=== PATIENT | male | born 1955 | race Caucasian/White ===

== ENCOUNTER → 2024-01-29 12:27 | Outpatient (REF) | payer OTHER, SELFPAY ==
[2024-01-29 14:37] LABS: % Basophils 0.6 % (0-2); % Eosinophils 4.1 % (0-6); % Immature Granulocytes 0.4 % (0-0.5); % Lymphocytes 26.5 % (20.5-51.1); % Monocytes 10.6 % (1.7-9.3); % Neutrophils 57.8 % (42.2-75.2); Absolute Basophils 0.1 10^3/uL (0-0.2); Absolute Eosinophils 0.3 10^3/uL (0-0.7); Absolute Lymphocytes 2.1 10^3/uL (1.2-3.4); Absolute Monocytes 0.8 10^3/uL (0.1-0.6); Absolute Neutrophils 4.5 10^3/uL (1.4-6.5); Hematocrit 42.5 % (39.0-52.0); Hemoglobin 14.2 g/dL (13.0-18.0); Mean Corp Hgb Conc. 33.4 g/dL (33.0-37.0); Mean Corpuscular Hgb 30.1 pg (27.0-31.0); Mean Platelet Volume 10.4 fL (7.4-10.4); Nucleated Red Blood Cells % 0 % (-); Platelet Count 231 10^3/uL (130-400); Red Blood Cell Count 4.72 10^6/uL (4.70-6.10); Red Cell Dist. Width 14.3 % (11.5-14.5); White Blood Cell Count 7.8 10^3/uL (4.8-10.8)
[2024-01-29 15:18] LABS: Blood Urea Nitrogen 58 mg/dl (9-20); Calcium 10.8 mg/dl (8.4-10.2); Carbon Dioxide 22 mmol/L (22-30); Chloride 109 mmol/L (98-107); Glucose 113 mg/dl (70-99); Potassium 4.5 mmol/L (3.5-5.1); Sodium 145 mmol/L (135-145); eGFR 33.66
== END ==
LOC: REG 12:27
PROVIDERS: ATTENDING PHYSICIAN Orthopaedic Surgery; FAMILY PHYSICIAN Family Medicine
DX: Z01.818 Encounter for other preprocedural examination (principal)
CPT/HCPCS: 36415; 80048; 85025; 93005

== ENCOUNTER → 2024-02-20 16:15 | Outpatient (REF) | payer OTHER, SELFPAY | LOC: CLAB 16:15 | PROVIDERS: ATTENDING PHYSICIAN Orthopaedic Surgery | DX: M13.849 Other specified arthritis, unspecified hand (principal) | CPT/HCPCS: 88305 ==

== ENCOUNTER 2025-01-12 09:04 | Inpatient (IN) | payer OTHER, SELFPAY ==
--- NOTE | 2024-12-08 11:31 | CM ---
CM reviewed medical records.
Demographics: Confirmed
Living situation: lives independently with
Support Person Post Operatively: , Roseline
History of
VN: yes, currently not on service
SNF: no
Outpatient; Simrant encouraged to make appointment for outpatient PT. Patient stated the facility is 'somewhere in [place]'
Has patient purchased required equipment: CM encouraged patient to review required DME list from [employer]
PCP: Active
Pharmacy: [facility]
Post Operative Discharge Plan: Discussed [facility], and plan to transition to outpatient PT.
[2024-12-22 11:34] LABS: Hematocrit 41.7 % (39.0-52.0); Hemoglobin 13.7 g/dL (13.0-18.0); Mean Corp Hgb Conc. 32.9 g/dL (33.0-37.0); Mean Corpuscular Volume 89.9 fL (80.0-94.0); Platelet Count 202 10^3/uL (130-400); Red Cell Dist. Width 14.8 % (11.5-14.5)
[2024-12-22 12:01] LABS: ALT (SGPT) 31 U/L (0-50); AST (SGOT) 24 U/L (17-59); Albumin 4.5 g/dl (3.5-5.0); Alkaline Phosphatase 63 U/L (38-126); Blood Urea Nitrogen 45 mg/dl (9-20); Calcium 10.7 mg/dl (8.4-10.2); Carbon Dioxide 23 mmol/L (22-30); Chloride 112 mmol/L (98-107); Glucose 110 mg/dl (70-99); Potassium 4.5 mmol/L (3.5-5.1); Sodium 144 mmol/L (135-145); Total Protein 7.7 g/dl (6.3-8.2); eGFR 40.24
[2024-12-22 12:08] LABS: Glycohemoglobin (HgbA1c) 6.0 % (4.0-5.6)
[2024-12-22 14:13] VITALS: BMI 35.5
--- NOTE | 2024-12-29 09:06 | VNURNOTE ---
Addendum entered by Lida Hinkle RN 12/30/24 09:43:
Spoke with patient.
Patient is scheduled for an elective R NUVIA on 01/12- he is a same day patient with Dr Nuñez. Spoke with patient prior to surgery. Introduced role of [facility] Liaison. Patient reports that he lives with his . No pets.
PCP is Dr Jimmy Hudson
Discussed [facility] joint protocol and post surgical plans.
Reviewed that he will have VN services initially and will then start outpatient PT.
Patient selects [facility] for his home care needs and will go to outpatient PT in [place]. Scheduled for 01/18 .
Patient is in agreement with plan and states that his will be home with him. Advised to bring RW with him day of surgery. Referral placed in [facility].
Plan: [facility] per [facility] joint protocol 01/12 then outpt PT on 01/18
Original Note:
Chart reviewed. Called pt to explain joint protocol same day program. No answer, left message. [facility] referral placed in [facility].
[2025-01-12] VITALS (21 sets, daily range): BP systolic 101–174; BP diastolic 69–108; PULSE 68–109; BMI 35.8
[2025-01-12] MEDS: CELEBREX 200 MG PO (06:22)
[2025-01-12] MEDS: TYLENOL 650 MG PO ×4 (06:22→20:11)
--- NOTE | 2025-01-12 07:44 | W.DS.TRANS ---
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
-
Discharge Instructions:
Discharge Diagnosis/Procedures R NUVIA Dr Nuñez
Diet Diabetic, Carb Controlled
Activity With Walker
Driving Restrictions No driving
Bathing Restrictions OK to Shower
Other Services PT
Instructions:
Stand-Alone Forms: SDS Total Hip and Knee D/C
Changes to Home Medications: Yes
Discharge Medications:
DC Medications w/original date entered in [employer]
Tremadone 1 dose PO BID 12/21/24
Held on 01/12/25. Instructions: Resume on 01/20/25.
atenolol 50 mg-chlorthalidone 25 mg tablet 1 tab PO DAILY 12/21/24
febuxostat 40 mg tablet 40 mg PO DAILY 12/21/24
melatonin 1 mg chewable tablet 2 mg PO HS PRN insomnia 12/21/24
omega 1-ndk-uwa-fish oil 1,000 mg (120 mg-180 mg) capsule (Fish Oil) 2 cap PO HS 12/21/24
Held on 01/12/25. Instructions: Resume on 01/20/25.
rosuvastatin 10 mg tablet 10 mg PO DAILY 12/21/24
cefadroxil 500 mg capsule 500 mg PO BID infection prevention #14 caps 12/22/24
dexamethasone 4 mg tablet 4 mg PO BID inflammation #6 tabs 12/22/24
famotidine 20 mg tablet 20 mg PO HS GI prophylaxis #30 tabs 12/22/24
gabapentin 300 mg capsule 300 mg PO HS sleep/pain #10 caps 12/22/24
mupirocin 2 % topical ointment 1 applic topical BID infection prevention #1 tube 12/22/24
ondansetron 4 mg disintegrating tablet 4 mg PO Q6H PRN n/v #20 tabs 12/22/24
oxycodone 5 mg tablet 5 mg PO Q6H PRN 1 tab moderate pain, 2 tabs severe pain #30 tabs 12/22/24
Saccharomyces boulardii 250 mg capsule (Florastor) 250 mg PO BID #1 cap 01/12/25
acetaminophen 500 mg tablet 1,500 mg (3 x 500 mg) PO TID #0 tabs 01/12/25
amlodipine 10 mg-benazepril 40 mg capsule 1 cap PO HS #0 caps 01/12/25
apixaban 5 mg tablet (Eliquis) 2.5 mg (1/2 x 5 mg) PO BID Blood clot prevention/tx/afib #0 tabs 01/12/25
docusate sodium 100 mg capsule (Colace) 100 mg PO BID stool softner #1 cap 01/12/25
magnesium hydroxide 400 mg/5 mL oral suspension (Milk of Magnesia) 30 ml PO HS PRN constipation #1 mL 01/12/25
sennosides 8.6 mg tablet (Senokot) 17.2 mg (2 x 8.6 mg) PO BID laxative #2 tabs 01/12/25
Home Medication Changes
cefadroxil 500 mg capsule 500 mg PO BID infection prevention #14 caps 12/22/24
dexamethasone 4 mg tablet 4 mg PO BID inflammation #6 tabs 12/22/24
famotidine 20 mg tablet 20 mg PO HS GI prophylaxis #30 tabs 12/22/24
gabapentin 300 mg capsule 300 mg PO HS sleep/pain #10 caps 12/22/24
mupirocin 2 % topical ointment 1 applic topical BID infection prevention #1 tube 12/22/24
ondansetron 4 mg disintegrating tablet 4 mg PO Q6H PRN n/v #20 tabs 12/22/24
oxycodone 5 mg tablet 5 mg PO Q6H PRN 1 tab moderate pain, 2 tabs severe pain #30 tabs 12/22/24
Saccharomyces boulardii 250 mg capsule (Florastor) 250 mg PO BID #1 cap 01/12/25
acetaminophen 500 mg tablet 1,500 mg (3 x 500 mg) PO TID #0 tabs 01/12/25
amlodipine 10 mg-benazepril 40 mg capsule 1 cap PO HS #0 caps 01/12/25
apixaban 5 mg tablet (Eliquis) 2.5 mg (1/2 x 5 mg) PO BID Blood clot prevention/tx/afib #0 tabs 01/12/25
docusate sodium 100 mg capsule (Colace) 100 mg PO BID stool softner #1 cap 01/12/25
magnesium hydroxide 400 mg/5 mL oral suspension (Milk of Magnesia) 30 ml PO HS PRN constipation #1 mL 01/12/25
sennosides 8.6 mg tablet (Senokot) 17.2 mg (2 x 8.6 mg) PO BID laxative #2 tabs 01/12/25
Pending Results: No
--- NOTE | 2025-01-12 08:21 | W.PN.ORTHO ---
Today's Communication / Plan
-
d/c when stable
Assessment
.
Assessment:
Intraoperative posterior wall acetabular [id number] TSH,Vit D
Atrial fibrillation.
Hypertension.
Hyperlipidemia.
-tele
-Eliquis at modified dose+ BB
Obstructive sleep apnea, severe.
-Cpap
Borderline diabetes.
-SSI coverage w/ low dose Lantus, diet control
-Cefadroxil ppx OP Rx
Plan
.
Surgery / Date: R NUVIA/Acetabular fx Dr Nuñez 01/12/25
DVT Prophylaxis: Other (Eliquis)
Activity:
Out of bed.
PT/OT
Vital Signs and Labs
.
Vital Signs and Labs:
Lab Results
12/22/24 11:04
12/22/24 11:04
Temp Pulse Resp BP Pulse Ox
99 F 70 16 156/89 96
01/12/25 06:24 01/12/25 06:24 01/12/25 06:24 01/12/25 06:24 01/12/25 06:24
[2025-01-12 08:46] LABS: Glucose - Point of Care 135 mg/dl (70-99)
[2025-01-12] MEDS: SUBLIMAZE 50 MCG IV ×2 (08:50→10:09)
[2025-01-12] MEDS: ROXICODONE 5 MG PO (09:26)
[2025-01-12 10:28] LABS: Vitamin D, 25-OH*** 15.8 ng/mL (30-80)
[2025-01-12 10:42] LABS: TSH 1.24 uIU/ml (0.47-4.68)
[2025-01-12] MEDS: DILAUDID 0.5 MG IV (12:07)
[2025-01-12] MEDS: NOVOLOG FLEXPEN-MODERATE RESISTANCE SC (13:13)
[2025-01-12] MEDS: CRESTOR 10 MG PO (13:20)
[2025-01-12] MEDS: NORMOSOL-R/PLASMALYTE-A 1000 IV ×2 (13:20→13:21)
[2025-01-12] MEDS: LANTUS 0.04 UNITS SC (13:21)
[2025-01-12 13:22] LABS: Glucose - Point of Care 167 mg/dl (70-99)
[2025-01-12] MEDS: ANCEF 5 IV ×2 (15:34→22:23)
[2025-01-12 16:05] LABS: Glucose - Point of Care 173 mg/dl (70-99)
[2025-01-12] MEDS: NOVOLOG FLEXPEN-MODERATE RESISTANCE 1 UNITS SC (16:52)
[2025-01-12] MEDS: ELIQUIS 2.5 MG PO (20:11)
[2025-01-12] MEDS: SENOKOT 17.2 MG PO (20:11)
[2025-01-12] MEDS: BACTROBAN 2% OINTMENT 1 APPLIC NASAL (20:12)
[2025-01-12] MEDS: COLACE 100 MG PO (20:12)
[2025-01-12] MEDS: DECADRON 4 MG IV (20:12)
[2025-01-12] MEDS: NEURONTIN 300 MG PO (21:39)
[2025-01-12] MEDS: PEPCID 20 MG PO (21:39)
[2025-01-12] MEDS: MELATONIN 3 MG PO (21:39)
[2025-01-12 21:43] LABS: Glucose - Point of Care 189 mg/dl (70-99)
[2025-01-12] MEDS: TYLENOL PO (23:59)
[2025-01-13 03:06] VITALS: BP 161/90
[2025-01-13] MEDS: TYLENOL PO (03:41)
[2025-01-13] MEDS: BACTROBAN 2% OINTMENT 1 APPLIC NASAL (07:11)
[2025-01-13] MEDS: NOVOLOG FLEXPEN-MODERATE RESISTANCE 1 UNITS SC (07:12)
[2025-01-13] MEDS: COLACE 100 MG PO (07:12)
[2025-01-13] MEDS: ELIQUIS 2.5 MG PO (07:12)
[2025-01-13] MEDS: TYLENOL 650 MG PO ×2 (07:12→11:46)
[2025-01-13] MEDS: LANTUS 0.04 UNITS SC (07:12)
[2025-01-13] MEDS: CRESTOR 10 MG PO (07:12)
[2025-01-13] MEDS: SENOKOT 17.2 MG PO (07:12)
[2025-01-13] MEDS: TENORMIN 50 MG PO (07:13)
[2025-01-13] MEDS: DECADRON 4 MG IV (07:14)
[2025-01-13 07:15] LABS: Glucose - Point of Care 176 mg/dl (70-99)
[2025-01-13 07:30] VITALS: BP 149/75
--- NOTE | 2025-01-13 08:47 | CM ---
Cm reviewed medical records. CM was updated by OT that patient will need home services. Cm updated [facility] Admission RN.
PLAN: Home with [facility].
[2025-01-13 08:48] VITALS: BP 142/79; BP 155/95; PULSE 101; O2SAT 97
--- NOTE | 2025-01-13 10:28 | W.PN.ORTHO ---
Today's Communication / Plan
-
d/c
Assessment
.
Distal Motor Intact: Yes
Dressing:
Clean, dry and intact.
Assessment:
Intraoperative posterior wall acetabular fx-PWB
TSH in range
Vit D deficiency-Ergocalciferal Rx OP w/ bone density when recovered
Atrial fibrillation.
Hypertension.
Hyperlipidemia.
-tele
-Eliquis at modified dose+ BB
Obstructive sleep apnea, severe.
-Cpap
-sats stable
Borderline diabetes.
-SSI coverage w/ low dose Lantus, diet control
-Cefadroxil ppx OP Rx
-sugars controlled POD#1
Plan
.
Surgery / Date: R NUVIA/Acetabular fx Dr Nuñez 01/12/25
DVT Prophylaxis: Other (Eliquis)
Activity:
Out of bed.
PT/OT
Discharge Plan: Home w/ VN
Subjective
.
.:
Patient resting comfortably.
Vital Signs and Labs
.
Vital Signs and Labs:
Lab Results
12/22/24 11:04
12/22/24 11:04
Temp Pulse Resp BP Pulse Ox
97.9 F 80 16 149/75 94
01/13/25 07:30 01/13/25 07:30 01/13/25 07:30 01/13/25 07:30 01/13/25 07:30
Physical Exam
-
HEENT: No pallor, cyanosis, or jaundice. Throat clear.
NECK: Supple. No JVD.
RESPIRATORY: Lungs clear to auscultation.
CVS: S1, S2 normal. RRR.� No murmur, rub or gallop.
ABDOMEN: Soft, non-tender. No distension. BS+/normal.
EXTREMITIES: strength equal, no calf pain with palpation
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
--- NOTE | 2025-01-13 10:31 | W.DS.TRANS ---
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
-
Discharge Instructions:
Discharge Diagnosis/Procedures R NUVIA Dr Nuñez
Diet Diabetic, Carb Controlled
Activity With Walker
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
Driving Restrictions No driving
Bathing Restrictions OK to Shower
Others Tests BONE DENSITY OP
Other Services PT,VN,OT
Instructions:
Stand-Alone Forms: SDS Total Hip and Knee D/C
Changes to Home Medications: Yes
Discharge Medications:
DC Medications w/original date entered in [employer]
Tremadone 1 dose PO BID Supplement 12/21/24
Held on 01/12/25. Instructions: Resume on 01/20/25.
atenolol 50 mg-chlorthalidone 25 mg tablet 1 tab PO DAILY Blood Pressure 12/21/24
febuxostat 40 mg tablet 40 mg PO DAILY Gout 12/21/24
melatonin 1 mg chewable tablet 2 mg PO HS PRN insomnia 12/21/24
omega 5-wiv-pug-fish oil 1,000 mg (120 mg-180 mg) capsule (Fish Oil) 2 cap PO HS Supplement 12/21/24
Held on 01/12/25. Instructions: Resume on 01/20/25.
rosuvastatin 10 mg tablet 10 mg PO DAILY High Cholesterol 12/21/24
cefadroxil 500 mg capsule 500 mg PO BID infection prevention #14 caps 12/22/24
dexamethasone 4 mg tablet 4 mg PO BID inflammation #6 tabs 12/22/24
famotidine 20 mg tablet 20 mg PO HS GI prophylaxis #30 tabs 12/22/24
gabapentin 300 mg capsule 300 mg PO HS sleep/pain #10 caps 12/22/24
mupirocin 2 % topical ointment 1 applic topical BID infection prevention #1 tube 12/22/24
ondansetron 4 mg disintegrating tablet 4 mg PO Q6H PRN n/v #20 tabs 12/22/24
oxycodone 5 mg tablet 5 mg PO Q6H PRN 1 tab moderate pain, 2 tabs severe pain #30 tabs 12/22/24
Saccharomyces boulardii 250 mg capsule (Florastor) 250 mg PO BID #1 cap 01/12/25
acetaminophen 500 mg tablet 1,500 mg (3 x 500 mg) PO TID #0 tabs 01/12/25
amlodipine 10 mg-benazepril 40 mg capsule 1 cap PO HS #0 caps 01/12/25
apixaban 5 mg tablet (Eliquis) 2.5 mg (1/2 x 5 mg) PO BID Blood clot prevention/tx/afib #0 tabs 01/12/25
docusate sodium 100 mg capsule (Colace) 100 mg PO BID stool softner #1 cap 01/12/25
magnesium hydroxide 400 mg/5 mL oral suspension (Milk of Magnesia) 30 ml PO HS PRN constipation #1 mL 01/12/25
sennosides 8.6 mg tablet (Senokot) 17.2 mg (2 x 8.6 mg) PO BID laxative #2 tabs 01/12/25
ergocalciferol (vitamin D2) 50 mcg (2,000 unit) tablet 50 mcg PO .TWICE WEEKLY VIT D DEFICIENCY #30 tabs 01/13/25
Home Medication Changes
cefadroxil 500 mg capsule 500 mg PO BID infection prevention #14 caps 12/22/24
dexamethasone 4 mg tablet 4 mg PO BID inflammation #6 tabs 12/22/24
famotidine 20 mg tablet 20 mg PO HS GI prophylaxis #30 tabs 12/22/24
gabapentin 300 mg capsule 300 mg PO HS sleep/pain #10 caps 12/22/24
mupirocin 2 % topical ointment 1 applic topical BID infection prevention #1 tube 12/22/24
ondansetron 4 mg disintegrating tablet 4 mg PO Q6H PRN n/v #20 tabs 12/22/24
oxycodone 5 mg tablet 5 mg PO Q6H PRN 1 tab moderate pain, 2 tabs severe pain #30 tabs 12/22/24
Saccharomyces boulardii 250 mg capsule (Florastor) 250 mg PO BID #1 cap 01/12/25
acetaminophen 500 mg tablet 1,500 mg (3 x 500 mg) PO TID #0 tabs 01/12/25
amlodipine 10 mg-benazepril 40 mg capsule 1 cap PO HS #0 caps 01/12/25
apixaban 5 mg tablet (Eliquis) 2.5 mg (1/2 x 5 mg) PO BID Blood clot prevention/tx/afib #0 tabs 01/12/25
docusate sodium 100 mg capsule (Colace) 100 mg PO BID stool softner #1 cap 01/12/25
magnesium hydroxide 400 mg/5 mL oral suspension (Milk of Magnesia) 30 ml PO HS PRN constipation #1 mL 01/12/25
sennosides 8.6 mg tablet (Senokot) 17.2 mg (2 x 8.6 mg) PO BID laxative #2 tabs 01/12/25
ergocalciferol (vitamin D2) 50 mcg (2,000 unit) tablet 50 mcg PO .TWICE WEEKLY VIT D DEFICIENCY #30 tabs 01/13/25
Pending Results: No
[2025-01-13 10:41] VITALS: BP 155/95; PULSE 62; O2SAT 98
[2025-01-13 11:24] VITALS: BP 134/79
[2025-01-13] MEDS: DRISDOL (VITAMIN D2) 50000 UNITS PO (11:46)
== END 2025-01-13 12:35 | disposition home health service (06) | DRG 470 ==
LOC: 2 SOUTH 09:04
PROVIDERS: Physician Assistant Medical; ADMITTING PHYSICIAN Orthopaedic Surgery; FAMILY PHYSICIAN Family Medicine; REFERRING PHYSICIAN Internal Medicine Cardiovascular Disease
PROC: 5A09357 Assistance with Respiratory Ventilation, Less than 24 Consecutive Hours, Continuous Positive Airway Pressure (ICD-10-PCS; 2025-01-12)
PROC: 0SR903A Replacement of Right Hip Joint with Ceramic Synthetic Substitute, Uncemented, Open Approach (ICD-10-PCS; 2025-01-12)
PROC: 0QS404Z Reposition Right Acetabulum with Internal Fixation Device, Open Approach (ICD-10-PCS; 2025-01-12)
PROC: 0QU40JZ Supplement Right Acetabulum with Synthetic Substitute, Open Approach (ICD-10-PCS; 2025-01-12)
DX: M16.11 Unilateral primary osteoarthritis, right hip (principal); M96.65 Fracture of pelvis following insertion of orthopedic implant, joint prosthesis, or bone plate; Y65.8 Other specified misadventures during surgical and medical care; Y92.234 Operating room of hospital as the place of occurrence of the external cause; I48.91 Unspecified atrial fibrillation; N18.30 Chronic kidney disease, stage 3 unspecified; I12.9 Hypertensive chronic kidney disease with stage 1 through stage 4 chronic kidney disease, or unspecified chronic kidney disease; E78.5 Hyperlipidemia, unspecified; E83.52 Hypercalcemia; M10.9 Gout, unspecified; G47.33 Obstructive sleep apnea (adult) (pediatric); R73.03 Prediabetes; R25.1 Tremor, unspecified; E55.9 Vitamin D deficiency, unspecified; G47.00 Insomnia, unspecified; E66.9 Obesity, unspecified; Z90.5 Acquired absence of kidney; Z79.01 Long term (current) use of anticoagulants
CPT/HCPCS: 36415; 73502; 80053; 82306; 82962; 83036; 84443; 85027; 87070; 93005; 94660; 97110; 97116; 97162; 97167; 97530; 97535; C1713; C1776